=== PATIENT | female | born 1925 | race Caucasian/White ===

== ENCOUNTER 2017-03-02 19:50 | Emergency (ER) | payer OTHER ==
[~2017-03-02] VITALS: Ht 160 cm; Wt 61.2 kg
[~2017-03-02 19:50] MED LIST: ATI.5 PO; CRAN450C PO; DONE10TA10 PO; ESCI10TA PO; ISOS60TE PO; LOSA25TA14 PO; MECL-272 PO; MEMA10TA PO; METO25TE2 PO; OMEP-48 PO; OXCA150T2 PO; SYN.05 PO
--- NOTE | 2017-03-02 19:50 | NUR ---
1929- PT RANDA FOSTER. TAKEN TO ER BED 2
[2017-03-02 19:52] VITALS: BP 143/79
--- NOTE | 2017-03-02 20:55 | NUR ---
Dr. Cullen evaluating patient at bedside.
--- NOTE | 2017-03-02 21:11 | NUR ---
89Y/F BIBA C/O RASH TO CHEST, SHOULDERS, BL ARMS AND ABD X2 MONTHS. PMH HTN, DEMENTIA. NKA. PT DAUGHTER STATES THAT PT HAS HAD RASH FOR 2 MONTHS STARTING ON HER SHOULDERS. PT COMES FROM [facility] PER EMS. PT HAS REDDENED SKIN W/ SCABS TO CHEST, SHOULDERS AND BL ARMS AND ABD. NO ACTIVE BLEEDING OR DRAINAGE NOTED AT THIS TIME. SKIN INTACT, SKIN IS WARM AND DRY. PT IS AWAKE AND ALERT TO NAME AND ACTING APPROPRIATE TO HER BASELINE. PT IN BED, SIDE RAILS UP X2, DAUGHTER AT BEDSIDE.
[2017-03-02] MEDS ORDERED: hydrOXYzine HCL 10 MG TAB PO ONE (21:30)
[2017-03-02] MEDS ORDERED: DOXYCYCLINE 100 MG CAP PO SCH (21:30)
--- NOTE | 2017-03-02 21:50 | NUR ---
ATARAX AND DOXYCYCLINE NOT AVAILABLE IN [facility]; CALLED HOUSE SU[facility] FOR MEDICATIONS.
[2017-03-02] MEDS ORDERED: ONDANSETRON 4 MG ODT PO ONE (22:05)
[2017-03-02] MEDS ORDERED: diphenhydrAMINE 12.5 MG/5 ML UDC PO ONE (22:05)
[2017-03-02 23:11] VITALS: BP 152/75
--- NOTE | 2017-03-02 23:12 | NUR ---
Patient discharged with v/s stable. Written and verbal after care instructions given and explained. Patient alert, oriented and verbalized understanding of instructions. wheelchair to car. All questions addressed prior to discharge. ID band removed. Patient advised to follow up with PMD. Rx of hydroxyzine, doxycycline given. Patient educated on indication of medication including possible reaction and side effects. Opportunity to ask questions provided and answered.
== END 2017-03-02 23:12 | disposition home or self-care (01) ==
LOC: MED 19:50
DX: L08.89 Other specified local infections of the skin and subcutaneous tissue (principal); K21.9 Gastro-esophageal reflux disease without esophagitis; I10 Essential (primary) hypertension; F03.90 Unspecified dementia, unspecified severity, without behavioral disturbance, psychotic disturbance, mood disturbance, and anxiety; E05.90 Thyrotoxicosis, unspecified without thyrotoxic crisis or storm
CPT/HCPCS: 99283; Q0163; S0119

== ENCOUNTER 2017-07-20 20:30 | Inpatient (IN) | payer OTHER ==
[~2017-07-20] VITALS: Ht 157.5 cm; Wt 65.8 kg
--- NOTE | 2017-07-20 20:30 | NUR ---
89Y F BIBA FROM [facility] C/O GEN. WEAKNESS AND TWITCHING X 1700 TODAY. DAUGHTER STATES PT HAS BEEN MORE LETHARGIC TODAY THEN OTHER DAYS. ARROUSEABLE TO SHAKING, NORMALLY ARROUSABLE TO NAME. PT HAS SKIN TEAR TO RIGHT INNER ARM WITH GEN BODY RASH. ER MD DR ALONSO MADE AWARE. PMH: GERD, HTN, HLD, DEMENTIA
--- NOTE | 2017-07-20 20:30 | NUR ---
BIBA TO ER BED 10
--- NOTE | 2017-07-20 20:32 | NUR ---
Patient being evaluated by physician at bedside.
[2017-07-20 20:34] VITALS: BP 146/74
[2017-07-20] MEDS ORDERED: NACL 0.9% 1,000 ML IV ONE (20:37)
--- NOTE | 2017-07-20 21:00 | NUR ---
PT LEFT TO CT VIA GURNEY ACCOMPANIED BY STAFF VETERINARIAN
[2017-07-20 21:53] LABS: BASOPHILS % (AUTO) 0.8 % (0.0-2.0); EOSINOPHILS # (AUTO) 0.3 K/uL (0-0.4); EOSINOPHILS % (AUTO) 4.3 % (0.0-4.0); HEMOGLOBIN 12.8 g/dL (12.0-16.0); LYMPHOCYTES % (AUTO) 33.1 % (20.5-51.1); MEAN CORPUSCULAR HEMOGLOBIN 34 pg (27-31); MEAN CORPUSCULAR HGB CONC 34 g/dL (33-37); MEAN CORPUSCULAR VOLUME 101.6 fL (80-94); MONOCYTES # (AUTO) 0.7 K/uL (0.8-1.0); MONOCYTES % (AUTO) 11.4 % (1.7-9.3); NEUTROPHILS % (AUTO) 50.4 % (42.2-75.2); PLATELET COUNT (AUTO) 95 K/uL (140-450); RED BLOOD CELL COUNT(AUTO) 3.74 MIL/uL (4.20-5.40); RED CELL DISTRIBUTION WIDTH 13.3 % (11.6-13.7)
[2017-07-20 21:56] LABS: APPEARANCE,URINE CLEAR (CLEAR); BLOOD, URINE TRACE-I (NEGATIVE); COLOR,URINE YELLOW (YELLOW); LEUKOCYTE ESTERASE ,URINE NEGATIVE (NEGATIVE); NITRITE, URINE NEGATIVE (NEGATIVE); PH,URINE 5.5 (5.0-9.0); UGLUCOSE NEGATIVE (NEGATIVE)
[2017-07-20 22:08] LABS: ALBUMIN 2.9 g/dL (3.4-5.0); ANION GAP 10.8 (8-16); ASPARTATE AMINOTRANSFERASE 135 U/L (15-37); CARBON DIOXIDE 29.5 mmol/L (21-32); CHLORIDE 110 mmol/L (98-107); GLUCOSE 121 mg/dL (74-106); LIPASE 232 U/L (73-393); POTASSIUM 4.3 mmol/L (3.5-5.1); PROTHROMBIN TIME 11.5 secs (10.8-13.4); SODIUM SERUM 146 mmol/L (136-145); TOTAL BILIRUBIN 0.7 mg/dL (0.0-1.0); UREA NITROGEN, BLOOD 20 mg/dL (7-18)
[2017-07-20 22:09] LABS: BILIRUBIN,URINE NEGATIVE (NEGATIVE)
[2017-07-20 22:10] LABS: RBC,URINE 0-5 (RARE) /HPF (0-5); WBC,URINE 0-5 (RARE) /HPF (0-5)
--- NOTE | 2017-07-20 22:25 | NUR ---
Lacie morrison in ED - 07/20/17 at 2227 by LEENA IV removed, catheter intact and site benign. Applied folded 4x4 gauze and tape to stop bleeding.
--- NOTE | 2017-07-20 22:58 | NUR ---
Patient will be admitted to care of DR HOROWITZ. Admited to TELE . Will go to room 124B. Belongings list completed. Report to PABLITO GUDINO .
--- NOTE | 2017-07-20 23:05 | NUR ---
PT ARRIVED VIA GURNEY TO UNIT. RECEIVED REPORT AT PT BEDSIDE FROM GERIATRIC NURSE, FOR CONTINUITY OF CARE. PATIENT IS AWAKE, ON ROOM AIR, NONVERBAL, WITH HISTORY OF ALZHEIMERS. PT HAS RASH THROUGHOUT BODY, OTHERWISE SKIN INTACT WARM AND DRY. PATIENT HAS PERIPHERAL IV SITE TO RIGHT FOREARM 20G, ASYMPTOMATIC, INTACT, PATENT. RESPIRATIONS EVEN AND UNLABORED. UPDATED BOARD. DISCUSSED PLAN OF CARE WITH FAMILY. PT STABLE, NO SIGNS OF DISTRESS NOTED AT THIS TIME. BED IN LOWEST POSITION, CALL LIGHT WITHIN REACH. WILL CONTINUE TO MONITOR.
[2017-07-20 23:55] VITALS: BP 146/106
--- NOTE | 2017-07-21 | NUR ---
VITAL SIGNS WNL. PT STABLE, NO SIGNS OF DISTRESS NOTED AT THIS TIME. BED IN LOWEST POSITION, CALL LIGHT WITHIN REACH. WILL CONTINUE TO MONITOR.
[2017-07-21 04:00] VITALS: BP 140/62
--- NOTE | 2017-07-21 04:11 | NUR ---
VITAL SIGNS WNL. PT STABLE, NO SIGNS OF DISTRESS NOTED AT THIS TIME. BED IN LOWEST POSITION, CALL LIGHT WITHIN REACH. WILL CONTINUE TO MONITOR.
[2017-07-21] MEDS ORDERED: NACL 0.45% 1,000 ML IV SCH (06:55)
--- NOTE | 2017-07-21 07:25 | NUR ---
ENDORSED PT TO DAY SHIFT RN FOR CONTINUITY OF CARE. PT IN STABLE CONDITION.
--- NOTE | 2017-07-21 07:26 | NUR ---
RECEIVED BEDSIDE REPORT FROM [employer] DEVELOPER NURSE. PATIENT IS AWAKE, ALERT AND ORIENTEDX1. NO SIGNS OF DISTRESS ON ROOM AIR. NO COMPLAINTS AT THIS TIME. IV ON R HAND 20G SALINE LOCK. SKIN HAS RASH THROUGHOUT. PATIENT IS INCONTINENT. BED IN LOW POSITION. CALL LIGHT WITHIN REACH. BED ALARM IS ON.
[2017-07-21] MEDS ORDERED: LORazepam 0.5 MG TAB PO PRN (07:40)
[2017-07-21 08:00] VITALS: BP 170/80
[2017-07-21] MEDS ORDERED: METOPROLOL SUCCINATE 50 MG TABER PO SCH (09:00)
[2017-07-21] MEDS ORDERED: NON-FORMULARY ITEM (Omeprazole (Omeprazole Dr) 20 MG) PO SCH (09:00)
[2017-07-21] MEDS ORDERED: DONEPEZIL 10 MG TAB PO SCH (09:00)
[2017-07-21] MEDS ORDERED: ESCITALOPRAM 20 MG TAB PO SCH (09:00)
[2017-07-21] MEDS ORDERED: LOSARTAN 25 MG TAB PO SCH (09:00)
[2017-07-21] MEDS ORDERED: MEMANTINE 10 MG TAB PO SCH (09:00)
[2017-07-21] MEDS ORDERED: AMOXIL/CLAVULANATE 875/125 MG 1 TAB PO SCH (09:00)
[2017-07-21] MEDS ORDERED: PANTOPRAZOLE 40 MG TABEC PO SCH (09:00)
[2017-07-21] MEDS ORDERED: LEVOTHYROXINE 0.05 MG TAB PO SCH (09:00)
[2017-07-21] MEDS ORDERED: OXcarbazepine 150 MG TAB PO SCH (09:00)
[2017-07-21] MEDS ORDERED: ISOSORBIDE MONONITRATE 30 MG TABER PO SCH (09:00)
--- NOTE | 2017-07-21 09:08 | NUR ---
ADMINISTERED MORNING MEDS. PATIENT TOLERATED WELL. GAVE MEDS WITH APPLESAUCE. DAUGHTERS AT BEDSIDE. WILL CONTINUE TO MONITOR THE PATIENT.
--- NOTE | 2017-07-21 09:16 | NUR ---
PATIENT HAS BEEN SCREENED AND CATEGORIZED HIGH NUTRITION RISK. PATIENT WILL BE SEEN WITHIN 1-2 DAYS OF ADMISSION. 07/21/17 - 07/22/[address]
--- NOTE | 2017-07-21 09:30 | NUR ---
ANN NOTE RECEIVED ORDER TO DC BACK TO [facility]. FAXED CLINICAL UPDATE TO [facility] ATTN: MODESTA. FAXED FACESHEET TO [facility] ATTN: ANN BAINS, FOR [facility] AUTHORIZATION. PER ANGEL OF [facility], PATIENT IS GOING TO [facility] UNDER DR. Giorgio HOROWITZ, NUMBER TO CALL FOR REPORT PH# [phone]. PER JENNIFER OF [facility] PH# [phone], PATIENT WILL BE PICKED UP AT 1130 TIME TODAY GOING TO [facility]. JIMY GUDINO AWARE.
--- NOTE | 2017-07-21 10:05 | NUR ---
I contact Patients current facility [facility] at , I Spoke with Gamaliel/staff to confirm that Patient will be able to return to facility at D/C. Per Gamaliel patient is on a 7 days bed hold and confirmed that Patient will be discharging back to facility today at D/C from [facility].
--- NOTE | 2017-07-21 10:49 | NUR ---
WOUND CARE EVALUATION NOTES: REASON FOR EVALUATION:RASHES SKIN ASSESSMENT DONE ON THIS 89 Y/O FEMALE PATIENT TO [facility] , WITH INITIAL DIAGNOSIS OF WEAKNESS AND LETHARGY. PAST MEDICAL HISTORY INCLUDE HEPATITIS C, HTN, DEMENTIA AND CHRONIC RASHES. ALL ABOVE INFORMATION WAS OBTAINED FROM THE ADMISSION H&P AND DAUGHTER CHAN. DAUGHTERS EXPLAINS PT HAS BEEN FOLLOW THE OUT PATIENT DERMATOLOGY WITH ON GOING TREATMENTS. LABS ARE WBC 6.0, H/H 12.8/38 GLUCOSE 121, ALBUMIN 2.9. PATIENT IS AWAKE WHEN TOUCHED. SKIN WARM TO TOUCH, NO EDEMA, NO HAIR GROWTH.INCONTINENT OF BOWEL AND BLADDER. PLAN OF CARE DISCUSSED WITH PT AND PRIMARY NURSE.DAUGHTERS TO VERBALIZE UNDERSTANDING. SPOKE TO DR. HOROWITZ AND DISCUSSED PLAN OF CARE, MD ORDER TO KEEP SKIN HYDRATE AT ALL TIME AND TO CONTINUE TO FOLLOW UP MANAGER LAND INTEGUMENTARY: - CHRONIC RASHES INCLUDES ANTERIOR AND POSTERIOR SHOULDERS,HIPS,THIGHS AND BILATERAL LOWER EXTREMITIES BID WC - RIGHT FOREARM IV INFILTRATION SITE HEMATOMA 3.5X2 CM, SMALL AMOUNT OF SANGUINOUS DRAINAGE, NO ODOR. -MULTIPLE ECCHYMOSIS TO BUE RECOMMENDATIONS: -CONTINUE TO FOLLOW UP OUT PATIENT MANAGER LAND, AND FAMILY TO ARRANGE APPOINTMENT -APPLY HYDRAGUARD TO RASHES INCLUDES ANTERIOR AND POSTERIOR SHOULDERS,HIPS,THIGHS AND BILATERAL LOWER EXTREMITIES BID WC -CLEANSE RIGHT FOREARM IV INFILTRATION SITE HEMATOMA WITH NS, PAT DRY, APPLY VERSATEL DRESSING, WRAP WITH KERLIX ROLL AND SECURE WITH TAPE Q5 DAYS AND PRN IF SOILING -TURN AND REPOSITION PATIENT Q2H -ASSESS AND MONITOR SKIN CONDITION DURING POSITION CHANGE -OFFLOAD BILATERAL HEELS BY PLACING PILLOWS UNDER CALVES AT ALL TIMES, UNLESS OTHERWISE CONTRAINDICATED -HEEL RAISERS TO BILATERAL HEELS AT ALL TIMES -PRESSURE REDISTRIBUTION SURFACE THERAPY -KEEP SKIN CLEAN AND DRY AT ALL TIMES. RECTAL TUBE FOR MOISTURE CONTROL UNLESSOTHERWISE CONTRAINDICATED. RECOMMENDATIONS DISCUSSED WITH PRIMARY RN WILL FOLLOW UP PATIENT PRN. PLEASE CONTACT WOUND CARE NURSE FOR ANY QUESTION OR CHANGES IN WOUND CONDITION
--- NOTE | 2017-07-21 10:55 | NUR ---
GAVE REPORT TO NISHA AT [facility]. NISHA IS AWARE THAT HE WILL BE ON CONTACT [facility] IN CASE THE PATIENT HAS SCABIES. WOUND CARE NURSE, ZAC ASSESSED SKIN AND THINKS IT IS POSSIBLE DX OF SCABIES. THEY ARE AWARE MEDICAL ASST TIME IS AT 1130 WITH [facility]. GAVE CALL BACK NUMBER.
--- NOTE | 2017-07-21 10:57 | NUR ---
FAMILY AT BEDSIDE. WILL GET DISCHARGE PAPERWORK READY.
--- NOTE | 2017-07-21 11:34 | NUR ---
CM NOTE PER [facility] ANN NELSON WHO IS WORKING WITH [facility] ANN BAINS, FOR [facility] [id number] AND [facility] AUTH# [id number].
[2017-07-21] MEDS ORDERED: AMOX-999 PO (11:38)
--- NOTE | 2017-07-21 12:00 | NUR ---
PATIENT LEFT WITH [facility] IN STABLE CONDITION. EDUCATED FAMILY ON ABD S/SX AND WHEN TO COME TO THE ER. EDUCATED ON DISEASE PROCESS AND HOW TO CARE FOR RASHES. DAUGHTER VERBALIZED UNDERSTANDING. ID BANDS ARE REMOVED, TELE MONITOR REMOVED.
--- NOTE | 2017-07-21 12:08 | NUR ---
CALLED NISHA FROM [facility]. EXPLAINED TO HIM THAT THE ORDER FOR AUGMENTIN IS 875/125MG BUT I HAD NO OPTION OTHER THAN 500/125MG. CALLED DR HOROWITZ BUT HE HASNT CALLED BACK. WILL AWAIT HIS CALL.
[2017-07-21] MEDS ORDERED: HYDRAGUARD CREAM TP SCH (13:00)
[2017-07-22] MEDS ORDERED: LEVOTHYROXINE 0.05 MG TAB PO SCH (06:30)
[2017-07-22] MEDS ORDERED: PANTOPRAZOLE 40 MG TABEC PO SCH (06:30)
== END 2017-07-21 12:00 | disposition home or self-care (01) | DRG 641 ==
LOC: MED 20:30 → MTU 22:35
PROVIDERS: ADMIT Family Medicine; ATTEND Family Medicine
DX: E87.1 Hypo-osmolality and hyponatremia (principal); E44.0 Moderate protein-calorie malnutrition; F03.91 Unspecified dementia, unspecified severity, with behavioral disturbance; E86.0 Dehydration; J01.31 Acute recurrent sphenoidal sinusitis; E78.5 Hyperlipidemia, unspecified; J32.3 Chronic sphenoidal sinusitis; K21.9 Gastro-esophageal reflux disease without esophagitis; F32.9 Major depressive disorder, single episode, unspecified; G40.909 Epilepsy, unspecified, not intractable, without status epilepticus; E03.9 Hypothyroidism, unspecified; I10 Essential (primary) hypertension; B18.2 Chronic viral hepatitis C; Z79.899 Other long term (current) drug therapy; Z68.26 Body mass index [BMI] 26.0-26.9, adult
CPT/HCPCS: 36415; 51702; 70450; 71045; 80053; 81001; 83605; 83690; 83880; 84484; 85025; 85610; 87040; 87081; 87086; 93005; 96360; 99285; J7030; Q0092